=== PATIENT | male | born 1985 | race Caucasian/White ===

== ENCOUNTER 2017-03-08 19:41 | Emergency (ER) | payer OTHER ==
[~2017-03-08] VITALS: Ht 170.2 cm; Wt 109.1 kg
[2017-03-08 19:41] VITALS: BP 160/82
[2017-03-08] MEDS ORDERED: TETRACAINE 0.5% OPHTH SOLN 4ML OS ONE (20:30)
[2017-03-08] MEDS ORDERED: FLUORESCEIN OPHTH 1 MG STRIP OS ONE (20:30)
[2017-03-08] MEDS ORDERED: ERYTOIN8 OS (20:56)
[2017-03-08] MEDS ORDERED: ERYTHROMYCIN OPHTH OINT OS ONE (21:00)
== END 2017-03-08 21:15 | disposition home or self-care (01) ==
LOC: M ED 19:41
DX: S05.02XA Injury of conjunctiva and corneal abrasion without foreign body, left eye, initial encounter (principal); X58.XXXA Exposure to other specified factors, initial encounter; Y92.89 Other specified places as the place of occurrence of the external cause; Y93.89 Activity, other specified; Y99.8 Other external cause status

== ENCOUNTER → 2018-06-25 | Outpatient (REF) | payer OTHER ==
[~2018-06-25] MED LIST: ERYTOIN8 OS
== END ==
LOC: M SMT 13:08
PROVIDERS: ATTEND Urology
DX: Z30.09 Encounter for other general counseling and advice on contraception (principal)

== ENCOUNTER → 2024-07-22 | Outpatient (REF) | payer OTHER ==
[2024-07-22 14:23] LABS: BASO % 0.6 % (0.0-1.0); EOS # 0.1 10^3/uL (0.0-0.5); EOS % 1.9 % (0.0-3.0); HEMATOCRIT 43.1 % (42.0-52.0); HEMOGLOBIN 14.4 g/dl (13.5-17.5); LYMPH # 1.8 10^3/uL (1.5-5.0); LYMPH % 37.3 % (24.0-44.0); MEAN CORPUSCULAR HGB CONC 33.4 g/dl (32.0-36.5); MEAN CORPUSCULAR VOLUME 86.9 fl (80.0-96.0); MONO # 0.4 10^3/uL (0.0-0.8); NEUTROPHILS # 2.5 10^3/uL (1.5-8.5); NEUTROPHILS % 51.2 % (36.0-66.0); PLATELET COUNT, AUTOMATED 224 10^3/uL (150-450); RED BLOOD COUNT 4.96 10^6/uL (4.30-6.10); WHITE BLOOD COUNT 4.8 10^3/uL (4.0-10.0)
[2024-07-22 14:46] LABS: HEMOGLOBIN A1c 5.3 % (4.0-6.0)
[2024-07-22 14:50] LABS: ALKALINE PHOSPHATASE 82 U/L (40-129); ALT/SGPT 41 U/L (7.0-40); AST/SGOT 19 U/L (<34); BILIRUBIN,TOTAL 0.9 MG/DL (0.3-1.2); BLOOD UREA NITROGEN 15 MG/DL (9-23); CALCIUM LEVEL 8.9 MG/DL (8.5-10.1); CARBON DIOXIDE LEVEL 30 MMOL/L (20-31); CHLORIDE LEVEL 102 MMOL/L (98-107); CHOLESTEROL LEVEL 140 MG/DL (<200); CHOLESTEROL RISK RATIO 2.11 (<5); CREATININE FOR GFR 0.84 MG/DL (0.70-1.30); FREE T4 1.11 NG/DL (0.89-1.76); GLOMERULAR FILTRATION RATE > 90.0 (>60); GLUCOSE, FASTING 90 MG/DL (60-100); HDL CHOLESTEROL 66.2 MG/DL (>40); LDL CHOLESTEROL 60.6 MG/DL (<100); NON-HDL-C 73.8 MG/DL; POTASSIUM SERUM 4.5 MMOL/L (3.5-5.1); SODIUM LEVEL 140 MMOL/L (136-145); THYROID STIMULATING HORMONE 1.093 uIU/ML (0.55-4.78); TOTAL PROTEIN 7.1 G/DL (5.7-8.2); TRIGLYCERIDES LEVEL 66 MG/DL (<150)
== END ==
LOC: M SFHCADAM 10:54
PROVIDERS: ATTEND Physician Assistant
DX: Z00.00 Encounter for general adult medical examination without abnormal findings (principal); R03.0 Elevated blood-pressure reading, without diagnosis of hypertension; R20.2 Paresthesia of skin; Z68.37 Body mass index [BMI] 37.0-37.9, adult; Z13.220 Encounter for screening for lipoid disorders

== ENCOUNTER → 2024-07-22 | Outpatient (CLI) | payer OTHER | LOC: M ADAMS 11:09 | PROVIDERS: ATTEND Physician Assistant | DX: R20.2 Paresthesia of skin (principal) ==

== ENCOUNTER 2024-10-28 07:58 | Day surgery (SDC) | payer OTHER ==
[~2024-10-28] VITALS: Ht 170.2 cm; Wt 106.6 kg
[~2024-10-28 07:58] MED LIST changes: +LIDOCAINE 2% 100 MG/5 ML SDV (FOR ANES.) As Ordered ONE; +ONDANSETRON 4MG 2ML VIAL As Ordered ONE; +dexAMETHasone 4 MG/ML 1 ML VIAL As Ordered ONE
[2024-10-28] MEDS ORDERED: LR 1,000 ML IV SCH ×2 (08:25→12:20)
[2024-10-28] MEDS ORDERED: MIDAZOLAM INJ 2 MG/2 ML VIAL As Ordered ONE (09:54)
[2024-10-28] MEDS ORDERED: ACETAMINOPHEN 1000MG/100ML IV BAG As Ordered ONE (11:14)
[2024-10-28] MEDS ORDERED: SEVOFLURANE INHAL SOLN 250 ML BTL As Ordered ONE (11:19)
[2024-10-28] MEDS ORDERED: HYDROmorphone HCL 2 MG/ML 1 ML VIAL As Ordered ONE (12:13)
[2024-10-28] MEDS ORDERED: KETOROLAC 30 MG/ML 1 ML VIAL As Ordered ONE (12:15)
[2024-10-28] MEDS ORDERED: ONDANSETRON 4MG 2ML VIAL IV PRN (12:20)
[2024-10-28] MEDS ORDERED: HYDROMORPHONE HCL 0.5 MG/0.5 ML SYRINGE IV PRN (12:20)
[2024-10-28 13:46] VITALS: BP 141/73; TEMP 97.5; O2SAT 97
== END 2024-10-28 13:55 | disposition home or self-care (01) ==
LOC: M SDC 07:58
PROVIDERS: ATTEND Orthopaedic Surgery Hand Surgery
DX: G56.01 Carpal tunnel syndrome, right upper limb (principal)
CPT/HCPCS: 29848; J0131; J0665; J1100; J1171; J1885; J2250; J2405; J3010

== ENCOUNTER 2025-02-15 09:51 | Day surgery (SDC) | payer OTHER ==
[~2025-02-15] VITALS: Ht 170.2 cm; Wt 115.9 kg
[~2025-02-15 09:51] MED LIST changes: -LIDOCAINE 2% 100 MG/5 ML SDV (FOR ANES.) As Ordered ONE; -ONDANSETRON 4MG 2ML VIAL As Ordered ONE; -dexAMETHasone 4 MG/ML 1 ML VIAL As Ordered ONE
[2025-02-15] MEDS ORDERED: ONDANSETRON 4MG/2ML VIAL As Ordered ONE (11:15)
[2025-02-15] MEDS ORDERED: dexAMETHasone 4 MG/ML 1 ML VIAL As Ordered ONE (11:15)
[2025-02-15] MEDS ORDERED: KETOROLAC 30 MG/ML 1 ML VIAL As Ordered ONE (11:15)
[2025-02-15] MEDS ORDERED: LIDOCAINE 2% 100 MG/5 ML SDV (FOR ANES.) As Ordered ONE (11:15)
[2025-02-15] MEDS ORDERED: MIDAZOLAM INJ 2 MG/2 ML VIAL As Ordered ONE (11:16)
[2025-02-15] MEDS ORDERED: ACETAMINOPHEN 1000MG/100ML IV BAG As Ordered ONE (11:57)
[2025-02-15] MEDS ORDERED: dexmedeTOMIDine (4 MCG/ML) 200 MCG/50 ML BTL As Ordered ONE (11:57)
[2025-02-15] MEDS ORDERED: MORPHINE 2 MG/ML 1 ML VIAL IV PRN (12:10)
[2025-02-15] MEDS ORDERED: HYDROMORPHONE HCL 0.5 MG/0.5 ML SYRINGE IV PRN (12:10)
[2025-02-15 13:36] VITALS: BP 136/76; TEMP 97.7; O2SAT 98
== END 2025-02-15 13:39 | disposition home or self-care (01) ==
LOC: M SDC 09:51
PROVIDERS: ATTEND Orthopaedic Surgery Hand Surgery
DX: G56.02 Carpal tunnel syndrome, left upper limb (principal)
CPT/HCPCS: 29848; J0131; J0665; J1100; J1885; J2250; J2405; J3010